=== PATIENT | male | born 1930 | race Caucasian/White ===

== ENCOUNTER 2018-09-01 15:24 | Emergency (ER) | payer OTHER, MEDICARE ==
[2018-09-01 15:42] VITALS: TEMP 97.6; BMI 29.2
--- NOTE | 2018-09-01 15:48 | PDOC ---
History of Present Illness - General Chief Complaint: Shortness of Breath Stated Complaint: SOB, CHEST PAIN, BRINGING UP PHLEGM Time Seen by Provider: 09/01/18 15:40 - History of Present Illness Initial Comments: 09/01/18 16:22 pt presents to the ED complaining of epigastric pain, cough and shortness of breath that started this morning. Pain is constant, moderate in severity, non radiating. Cough is productive of whitish sputum. Denies fever. Complains of nausea without vomiting. Complains of very mild lightheadness. Past History - Past Medical History Allergies/Adverse Reactions: Allergies Allergy/AdvReac Type Severity Reaction Status Date / Time No Known Allergies Allergy Verified 09/01/18 15:26 Home Medications: Ambulatory Orders Atorvastatin Ca [Lipitor] 80 mg PO HS 09/01/18 Bimatoprost [Lumigan] 1 drop IO DAILY 09/01/18 Metoprolol Succinate [Toprol Xl] 50 mg PO DAILY 09/01/18 Quinapril HCl [Accupril] 5 mg PO DAILY 09/01/18 Cancer: Yes (SKIN) COPD: No HTN: Yes Hypercholesterolemia: Yes - Suicide/Smoking/Psychosocial Hx Smoking History: Former smoker Have you smoked in the past 12 months: No Information on smoking cessation initiated: No Hx Alcohol Use: No Review of Systems - Review of Systems Able to Perform ROS?: Yes Is the patient limited Fijian proficient: No Constitutional: No: Symptoms Reported, See HPI, Chills, Diaphoresis, Fever, Loss of Appetite, Malaise, Night Sweats, Weakness, Weight Stable, Unintentional Wgt. Loss, Unexplained wgt Loss, Other HEENTM: No: Symptoms Reported, See HPI, Eye Pain, Blurred Vision, Tearing, Recent change in vision, Double Vision, Cataracts, Ear Pain, Ocular Prothesis, Ear Discharge, Nose Pain, Nose Congestion, Tinnitus, Nose Bleeding, Hearing Loss , Throat Pain, Throat Swelling, Mouth Pain, Dental Problems, Difficulty Swallowing, Mouth Swelling, Other Respiratory: Yes: Cough, Shortness of Breath. No: Symptoms reported, See HPI, Orthopnea, SOB with Exertion, Stridor, Wheezing, Productive cough, Hemoptysis, Other Cardiac (ROS): Yes: Chest Pain. No: Symptoms Reported, See HPI, Edema, Irregular Heart Rate, Lightheadedness, Palpitations, Syncope, Chest Tightness, Other ABD/GI: No: Symptoms Reported, See HPI, Abdominal Distended, Abd. Pain w/ defecation, Blood Streaked Bowels, Constipated, Diarrhea, Difficulty Swallowing , Nausea, Poor Appetite, Poor Fluid Intake, Rectal Bleeding, Vomiting, Indigestion, Abdominal cramping, Tarry Stools, Other : No: Symptoms Reported, See HPI, Burning, Dysuria, Discharge, Frequency, Flank Pain, Hematuria, Incontinence, Pain, Urgency, Testicular Mass, Testicular Swelling, Lesions, Testicular Pain, Other Musculoskeletal: No: Symptoms Reported, See HPI, Back Pain, Gout, Joint Pain, Joint Swelling, Muscle Pain, Muscle Weakness, Neck Pain, Joint Stiffness, Other Integumentary: No: Symptoms Reported, See HPI, Bruising, Change in Color, Change in Hair/Nails, Dryness, Erythema, Flushing, Lesions, Lumps, Pallor, Pruritus, Rash, Sweating, Other Neurological: No: Symptoms reported, See HPI, Headache, Numbness, Paresthesia, Pre-Existing Deficit, Seizure, Tingling, Tremors, Weakness, Unsteady Gait, Ataxia, Dizziness, Other All Other Systems: Reviewed and Negative *Physical Exam - Vital Signs Last Vital Signs Temp Pulse Resp BP Pulse Ox 97.6 F 94 H 22 H 147/80 96 09/01/18 15:24 09/01/18 15:43 09/01/18 15:43 09/01/18 15:43 09/01/18 15:43 - Physical Exam Comments: 09/01/18 16:36 Gen: Alert, NAD HEENT: normocephalic, atraumatic CV: RRR no m/r/g Pulm: CTA b/l Abdomen: + mild epigastric tenderness without guarding or rebound. Soft, non distended. ext: no edema Neuro: alert and oriented x 3 normal mood and affect ED Treatment Course - LABORATORY CBC & Chemistry Diagram: 09/01/18 16:10 09/01/18 16:10 Medical Decision Making - Medical Decision Making 09/01/18 16:38 Pt presents to the ED complaining of shortness of breath and epigastric/chest pain. Will differential includes ACS, biliary disease, PNA, less likely CHF. Will check labs and CXR, likely check CT abdomen pelvis, admit to medicine for rule out ACS if labs and ct are negative. 09/01/18 18:55 Patient requesting to leave AMA. understands that he is at risk for intrabdominal pathology and RI. Patient understood the risk of leaving AMA. Will return to the ED tomorrow to complete his work up *DC/Admit/Observation/Transfer Diagnosis at time of Disposition: Abdominal pain Qualifiers: Abdominal location: epigastric Qualified Code(s): R10.13 - Epigastric pain - Discharge Dispostion Disposition: AGAINST MEDICAL ADVICE Condition at time of disposition: Good Decision to Admit order: No - Referrals Referrals: Paulo Pizano [Primary Care Provider] - - Patient Instructions Printed Discharge Instructions: DI for Abdominal Pain-Adult Additional Instructions: you left the ED against medical advice--because of your high white blood cell count and abdominal pain, I felt that you should have a cat scan. return to the ED tomorrow for your cat scan or sooner if your are feeling worse. You are at risk for serious problems inside the abdomen and heart attack. Please return for worsening symptoms, or if you change your mind. - Post Discharge Activity
[2018-09-01] MEDS ORDERED: ONDANSETRON 4 MG/2 ML VIAL IVPUSH ONE (16:00)
[2018-09-01] MEDS ORDERED: ONDANSETRON 4 MG/2 ML VIAL ONE (16:06)
[2018-09-01 16:29] LABS: BASO % 0.2 % (0-2.0); HEMOGLOBIN 14.2 GM/dl (11.7-16.9); LYMPH % 6.2 % (8-40); MCH 30.6 pg (25.7-33.7); MCHC 33.1 g/dl (32.0-35.9); MEAN CELL VOLUME 92.5 fl (80-96); MEAN PLT VOLUME 10.5 fl (7.5-11.1); MONO % 4.6 % (3.8-10.2); PLATELET COUNT 241 K/MM3 (134-434); RBC 4.65 M/mm3 (4.00-5.60); RDW 13.4 % (11.9-15.9); WHITE BLOOD COUNT 13.4 K/mm3 (4.0-10.8)
[2018-09-01 16:42] LABS: ALBUMIN 4.4 g/dl (3.4-5.0); BILIRUBIN,TOTAL 0.7 mg/dl (0.2-1); CALCIUM 9.3 mg/dl (8.5-10); CREATININE 1.3 mg/dl (0.55-1.3); POTASSIUM 4.3 mmol/L (3.5-5.1); TOT PROT 7.6 g/dl (6.4-8.2)
[2018-09-01] MEDS ORDERED: ACETAMINOPHEN 1000 MG/100 ML VIAL (NON FORMULARY) IVPB ONE (17:00)
[2018-09-01] MEDS ORDERED: FAMOTIDINE 20 MG/50 ML IVPB 20 MG/50 ML MG IVPB ONE ×2 (17:00→17:02)
[2018-09-01] MEDS ORDERED: ACETAMINOPHEN INJECTION 100 ML IVPB ONE (17:02)
[2018-09-01 17:54] LABS: EPITHELIAL CELLS FEW /hpf
[2018-09-01 18:37] VITALS: BP 149/77; PULSE 86
--- NOTE | 2018-09-02 17:45 | EKG ---
Test Reason : Blood Pressure : / mmHG Vent. Rate : 097 BPM Atrial Rate : 097 BPM P-R Int : 170 ms QRS Dur : 088 ms QT Int : 382 ms P-R-T Axes : 054 027 038 degrees QTc Int : 485 ms NORMAL SINUS RHYTHM NONSPECIFIC ST ABNORMALITY PROLONGED QT ABNORMAL ECG NO PREVIOUS ECGS AVAILABLE Confirmed by MIKEY GARCÍA MD ([id number]) on 09/02/2018 5:44:40 PM Referred By: Confirmed By:MIKEY GARCÍA MD
== END 2018-09-01 18:30 | disposition left against medical advice (07) ==
LOC: FER 15:24
PROC: 3E033NZ Introduction of Analgesics, Hypnotics, Sedatives into Peripheral Vein, Percutaneous Approach (ICD-10-PCS; principal; 2018-09-01)
PROC: 3E033GC Introduction of Other Therapeutic Substance into Peripheral Vein, Percutaneous Approach (ICD-10-PCS; 2018-09-01)
DX: R10.13 Epigastric pain (principal)
CPT/HCPCS: 36415; 71045-TC-FY; 80053; 81003; 81015; 82550; 83880; 84484; 85025; 93005; 99285-25; J0131

== ENCOUNTER 2018-09-02 07:38 | Emergency (ER) | payer OTHER, MEDICARE ==
[2018-09-02 07:52] VITALS: BMI 29.2
[2018-09-02] MEDS ORDERED: ACETAMINOPHEN 1000 MG/100 ML VIAL (NON FORMULARY) IVPB ONE (08:01)
[2018-09-02] MEDS ORDERED: SODIUM CHLORIDE 1,000 ML IV STA ×2 (08:01→10:06)
[2018-09-02] MEDS ORDERED: FAMOTIDINE 20 MG/50 ML IVPB 20 MG/50 ML MG IVPB ONE ×2 (08:01→08:33)
--- NOTE | 2018-09-02 08:10 | PDOC ---
History of Present Illness - General Chief Complaint: Pain Stated Complaint: abd pain Time Seen by Provider: 09/02/18 07:39 History Source: Patient, Spouse Exam Limitations: No Limitations - History of Present Illness Initial Comments: 09/02/18 08:10 88-year-old male with history of hypertension, hyperlipidemia returns to the ED for persistent upper abdominal pain. The patient had developed upper abdominal pain yesterday where he was initially evaluated with blood work, chest x-ray. The blood work demonstrated a slightly elevated white blood cell count and the patient was sent to undergo a CAT scan abdomen pelvis. However, patient left AGAINST MEDICAL ADVICE as he did not wish to stay for the CAT scan. However, the pain persisted the patient reported a dull upper abdominal pain. No fevers, chills. No nausea or vomiting. Patient reports decreased appetite secondary to pain. Reports hard stool this morning. Denies previous abdominal surgeries. Denies dysuria. Patient returns the ER for CT scan. Past History - Past Medical History Allergies/Adverse Reactions: Allergies Allergy/AdvReac Type Severity Reaction Status Date / Time No Known Allergies Allergy Verified 09/02/18 07:39 Home Medications: Ambulatory Orders Atorvastatin Ca [Lipitor] 80 mg PO HS 09/01/18 Bimatoprost [Lumigan] 1 drop IO DAILY 09/01/18 Metoprolol Succinate [Toprol Xl] 50 mg PO DAILY 09/01/18 Quinapril HCl [Accupril] 5 mg PO DAILY 09/01/18 Cancer: Yes (SKIN) COPD: No HTN: Yes Hypercholesterolemia: Yes - Suicide/Smoking/Psychosocial Hx Smoking History: Former smoker Have you smoked in the past 12 months: No If you are a former smoker, when did you quit?: 04/03 Cigars Per Day: 1 Information on smoking cessation initiated: Yes Hx Alcohol Use: No Drug/Substance Use Hx: No Review of Systems - Review of Systems Able to Perform ROS?: Yes Comments:: 09/02/18 08:10 GENERAL/CONSTITUTIONAL: [No fever or chills. No weakness. No weight change.] HEAD, EYES, EARS, NOSE AND THROAT: [No change in vision. No ear pain or discharge. No sore throat.] CARDIOVASCULAR: [No chest pain or shortness of breath.] RESPIRATORY: [No cough, wheezing, or hemoptysis.] GASTROINTESTINAL: [No nausea, vomiting, diarrhea or constipation. No rectal bleeding.] +abdominal pain GENITOURINARY: [No dysuria, frequency, or change in urination.] MUSCULOSKELETAL: [No joint or muscle swelling or pain. No neck or back pain.] SKIN AND BREASTS: [No rash or easy bruising.] NEUROLOGIC: [No headache, vertigo, loss of consciousness, or loss of sensation.] PSYCHIATRIC: [No depression or anxiety.] ENDOCRINE: [No increased thirst. No abnormal weight change.] HEMATOLOGIC/LYMPHATIC: [No anemia, easy bleeding, or history of blood clots.] ALLERGIC/IMMUNOLOGIC: [No hives or skin allergy. No latex allergy.] *Physical Exam - Vital Signs Last Vital Signs Temp Pulse Resp BP Pulse Ox 97.8 F 89 20 174/97 H 95 09/02/18 07:38 09/02/18 07:38 09/02/18 07:38 09/02/18 07:38 09/02/18 07:38 - Physical Exam Comments: 09/02/18 08:11 GENERAL: Awake, alert, and fully oriented, in no acute distress HEAD: No signs of trauma EYES: EOMI, sclera anicteric, conjunctiva clear ENT: Auricles normal inspection, hearing grossly normal, nares patent, NECK: Normal ROM, LUNGS: Breath sounds equal, clear to auscultation bilaterally. No wheezes, and no crackles HEART: Regular rate and rhythm, normal S1 and S2, no murmurs, rubs or gallops ABDOMEN: Soft, nontender, TTP epigastric and LUQ. Caban sign negative. No guarding, no rebound. No masses EXTREMITIES: Normal range of motion, no edema. No clubbing or cyanosis. No cords, erythema, or tenderness NEUROLOGICAL: Cranial nerves II through XII grossly intact. Normal speech SKIN: Warm, Dry, normal turgor, no rashes or lesions noted. Heart Score/ECG Review #1 ECG reviewed & interpreted by me at: 08:25 09/02/18 08:26 NSR 79, no std/yamel, normal axis, normal intervals, QTC 444 msec. normal EKG ED Treatment Course - LABORATORY CBC & Chemistry Diagram: 09/02/18 08:00 09/02/18 08:00 - RADIOLOGY Radiology Studies Ordered: Category Date Time Status ABDOMEN & PELVIS CT WITH CONTR [CT] Stat CT Scan 09/02/18 07:49 Ordered Medical Decision Making - Medical Decision Making 09/02/18 08:13 Vital Signs Temp Pulse Resp BP Pulse Ox 97.8 F 89 20 174/97 H 95 09/02/18 07:38 09/02/18 07:38 09/02/18 07:38 09/02/18 07:38 09/02/18 07:38 88-year-old male returns numerous department for persistent upper abdominal pain after leaving AGAINST MEDICAL ADVICE. Differential includes gastritis, peptic ulcer disease, pancreatitis, colitis, hernia, bowel obstruction, other acute abdominal pathologies. Will obtain repeat labs, abdomen and pelvis and reassess. 09/02/18 13:10 CBC, BMP 09/02/18 08:00 09/02/18 08:00 CMP Sodium 144 mmol/L (136-145) 09/02/18 08:00 Potassium 4.3 mmol/L (3.5-5.1) 09/02/18 08:00 Chloride 106 mmol/L (98-107) 09/02/18 08:00 Carbon Dioxide 26 mmol/L (21-32) 09/02/18 08:00 Anion Gap 12 MMOL/L (8-16) 09/02/18 08:00 BUN 31.0 mg/dl (7-18) H 09/02/18 08:00 Creatinine 1.5 mg/dl (0.55-1.3) H 09/02/18 08:00 Est GFR (CKD-EPI)AfAm 47.83 09/02/18 08:00 Est GFR (CKD-EPI)NonAf 41.27 09/02/18 08:00 Random Glucose 179 mg/dl (74-106) H 09/02/18 08:00 Lactic Acid 1.8 mmol/L (0.4-2.0) 09/02/18 11:18 Calcium 9.2 mg/dl (8.5-10) 09/02/18 08:00 Total Bilirubin 0.8 mg/dl (0.2-1) 09/02/18 08:00 AST 111 U/L (15-37) H 09/02/18 08:00 ALT 135 U/L (13-61) H 09/02/18 08:00 Alkaline Phosphatase 104 U/L (45-117) 09/02/18 08:00 Troponin I 0.12 ng/ml (0.00-0.05) H 09/02/18 08:00 Total Protein 7.4 g/dl (6.4-8.2) 09/02/18 08:00 Albumin 4.3 g/dl (3.4-5.0) 09/02/18 08:00 Lipase 205 U/L (73-393) 09/02/18 08:00 Urine Test Results Urine Color Yellow 09/02/18 12:49 Urine Appearance Clear 09/02/18 12:49 Urine pH 5.0 (4.5-8) 09/02/18 12:49 Urine Protein 2+ (NEGATIVE) H 09/02/18 12:49 Urine Glucose (UA) Negative (NEGATIVE) 09/02/18 12:49 Urine Ketones Negative (NEGATIVE) 09/02/18 12:49 Urine Blood 2+ (NEGATIVE) H 09/02/18 12:49 Urine Nitrite Negative (NEGATIVE) 09/02/18 12:49 Urine Bilirubin Negative (NEGATIVE) 09/02/18 12:49 Ur Leukocyte Esterase Negative (NEGATIVE) 09/02/18 12:49 Urine RBC 5-10 /hpf (0-4) 09/02/18 12:49 Urine WBC 0-2 (NEGATIVE) 09/02/18 12:49 The patient's CAT scan returned a hiatal hernia which could potentially be explained the patient's pain. However, the patient has multiple abnormalities that is concerning here. The patient has a white count that is worsened today than it was yesterday. It is nearly 19 today. Also notable is a creatinine of 1.5 which is increased from 1.3 and a troponin of 0.12. The repeat EKG today is normal. However, with a combination of all these findings, sepsis is within the differential. MIs was in the differential. Patient was initiated on IV Zosyn and given 2 L of IV fluids. Blood cultures were drawn. Initially, I had recommended the patient to be admitted to the hospital as this will require further management. However, the patient and the patient's strongly insists and prefers to go to [facility] for admission. The patient's care is all associated with that hospital. I had attempted to reach out to patient's cardiol just, Dr. Pizano, however he was not sql server consultant. I have spoke to the golf superintendent on-call but he reports that he does not know this patient well nor does he have access to his records. After speaking with the patient and the patient's family, I recommended that the patient states [facility], however, the patient and patient's family had elected to take the patient to [facility]. They have capacity and are able to repeat the risks to me. Patient had left AGAINST MEDICAL ADVICE. Return precautions were given. *DC/Admit/Observation/Transfer Diagnosis at time of Disposition: Left against medical advice, Elevated troponin Elevated WBC count Qualifiers: Leukocytosis type: unspecified Qualified Code(s): D72.829 - Elevated white blood cell count, unspecified Abdominal pain Qualifiers: Abdominal location: epigastric Qualified Code(s): R10.13 - Epigastric pain - Discharge Dispostion Disposition: AGAINST MEDICAL ADVICE Condition at time of disposition: Stable - Referrals - Patient Instructions Printed Discharge Instructions: DI for Abdominal Pain-Adult Additional Instructions: You have been evaluated for your upper abdominal pain. You have been seen initially yesterday but had left AGAINST MEDICAL ADVICE at that time. With your upper abdominal pain that has been persistent for the last day, you initially had blood work, EKG and chest x-ray performed yesterday by another emergency medicine physician. At that time, the only notable finding was a white count of 13.4. Today, given your persistence of upper abdominal pain, ear received repeat blood work as well as a CAT scan the abdomen pelvis. Your blood work demonstrates white count of almost 19. Your creatinine which is for your kidney is at 1.5. And your troponin which was undetectable yesterday, is currently elevated at 0.12. Your abdominal and and pelvis ED shows a hiatal hernia but no other acute findings. The hiatal hernia may explain your upper abdominal pain but given the elevated white blood cell count, we have initiated one dose of IV antibiotics, IV Zosyn, which was last given today on September 02 at 11 AM. We have attempted to recheck your doctor, Dr. Pizano, at [facility], but he was currently unavailable. We strongly recommend that you be admitted to the hospital for further management and evaluation. However, you have decided leave AGAINST MEDICAL ADVICE. It is strongly recommended that if he preferred to go to [facility], to go directly to the emergency department. Please take the copy of these reports with you. In the meantime, your always welcome to return here to the emergency department at [facility]. - Post Discharge Activity
[2018-09-02] MEDS ORDERED: ACETAMINOPHEN INJECTION 100 ML IVPB ONE (08:33)
[2018-09-02 09:05] LABS: BASO % 0.9 % (0-2.0); HEMATOCRIT 44.8 % (35.4-49); HEMOGLOBIN 14.5 GM/dl (11.7-16.9); LYMPH % 5.5 % (8-40); MCHC 32.3 g/dl (32.0-35.9); MEAN PLT VOLUME 9.5 fl (7.5-11.1); MONO % 6.4 % (3.8-10.2); NEUT % 87.2 % (42.8-82.8); PLATELET COUNT 251 K/MM3 (134-434); RBC 4.82 M/mm3 (4.00-5.60); RDW 13.9 % (11.9-15.9); WHITE BLOOD COUNT 18.9 K/mm3 (4.0-10.8)
[2018-09-02 09:20] LABS: ALBUMIN 4.3 g/dl (3.4-5.0); BILIRUBIN,TOTAL 0.8 mg/dl (0.2-1); CALCIUM 9.2 mg/dl (8.5-10); CREATININE 1.5 mg/dl (0.55-1.3); POTASSIUM 4.3 mmol/L (3.5-5.1); TOT PROT 7.4 g/dl (6.4-8.2)
[2018-09-02] MEDS ORDERED: PIPERACILLIN/TAZOB 3.375 GM 3.375 GM in DEXTROSE 5%-WATER - 50 ML IVPB ONE (10:16)
[2018-09-02 10:55] VITALS: BP 184/97; PULSE 91; TEMP 97.4
[2018-09-02] MEDS ORDERED: PIPERACILLIN/TAZOBACTAM 3.375 GM VIAL IVPB ONE (11:07)
[2018-09-02 13:07] LABS: EPITHELIAL CELLS FEW /hpf
--- NOTE | 2018-09-02 17:40 | EKG ---
Test Reason : Blood Pressure : / mmHG Vent. Rate : 079 BPM Atrial Rate : 079 BPM P-R Int : 132 ms QRS Dur : 094 ms QT Int : 388 ms P-R-T Axes : 018 031 005 degrees QTc Int : 444 ms NORMAL SINUS RHYTHM NORMAL ECG WHEN COMPARED WITH ECG OF 01-SEP-2018 15:32, NO SIGNIFICANT CHANGE WAS FOUND Confirmed by MIKEY GARCÍA MD ([id number]) on 09/02/2018 5:39:55 PM Referred By: ERICA KNUTSON Confirmed By:MIKEY GARCÍA MD
== END 2018-09-02 13:13 | disposition left against medical advice (07) ==
LOC: FER 07:38
PROC: 3E033NZ Introduction of Analgesics, Hypnotics, Sedatives into Peripheral Vein, Percutaneous Approach (ICD-10-PCS; principal; 2018-09-02)
PROC: 3E033GC Introduction of Other Therapeutic Substance into Peripheral Vein, Percutaneous Approach (ICD-10-PCS; 2018-09-02)
PROC: 3E03329 Introduction of Other Anti-infective into Peripheral Vein, Percutaneous Approach (ICD-10-PCS; 2018-09-02)
PROC: 3E0337Z Introduction of Electrolytic and Water Balance Substance into Peripheral Vein, Percutaneous Approach (ICD-10-PCS; 2018-09-02)
DX: R10.13 Epigastric pain (principal); D72.829 Elevated white blood cell count, unspecified; I10 Essential (primary) hypertension; E78.5 Hyperlipidemia, unspecified; Z87.891 Personal history of nicotine dependence; E78.00 Pure hypercholesterolemia, unspecified
CPT/HCPCS: 36415; 74177-TC; 80053; 81003; 81015; 83605; 83690; 84484; 85025; 87040; 87086; 93005; 99283-25; J0131; J7030